=== PATIENT | male | born 1935 | race Caucasian/White ===

== ENCOUNTER 2016-11-12 12:17 | Inpatient (IN) | payer MEDICARE ==
[2016-11-12] MEDS ORDERED: NITROGLYCERIN OINT 1 INCH/GM PACKET TOPICAL STA (13:03)
[2016-11-12] MEDS ORDERED: ASPIRIN 81 MG CHEW PO STA (13:03)
--- NOTE | 2016-11-12 13:16 | ED ---
General Adult HPI - General Chief complaint: Chest Pain Stated complaint: SOB, abnormal EKG Time Seen by Provider: 11/12/16 12:20 Source: patient, RN notes reviewed Mode of arrival: ambulatory Limitations: no limitations - History of Present Illness Initial comments: This is an 81-year-old male who presents to the emergency department with multiple complaints. Patient states she's been having intermittent chest pain or shortness of breath over the last 3 months. Patient states anytime he exerts himself he feels more short of breath. Patient also complains that he has had no appetite lately knees lost over 30 pounds. Patient states also become extremely weak. Patient states prior to 3 months ago he was walking every day he was able to get up and play with hisgrand kids and lately he has no energy whatsoever. Patient denies any abdominal pain patient denies nausea vomiting diarrhea per patient denies back pain patient denies any dysuria hematuria urinary frequency. Patient denies any recent fever or chills. Patient complains of a cough with white sputum.patient denies any smoking history for himself however his is a heavy smoker. - Related Data Home Medications Medication Instructions Recorded Confirmed Aspirin [Adult Low Dose Aspirin EC] 810 mg PO DAILY 07/17/15 11/12/16 Atenolol 100 mg PO DAILY 07/17/15 11/12/16 Allergies Allergy/AdvReac Type Severity Reaction Status Date / Time No Known Allergies Allergy Verified 11/12/16 14:28 Review of Systems ROS Statement: Those systems with pertinent positive or pertinent negative responses have been documented in the HPI. ROS Other: All systems not noted in ROS Statement are negative. Past Medical History Past Medical History: Chest Pain / Angina, Hypertension History of Any Multi-Drug Resistant Organisms: None Reported Past Surgical History: Hernia Repair Additional Past Surgical History / Comment(s): HEMORROIDS Past Anesthesia/Blood Transfusion Reactions: No Reported Reaction Past Psychological History: No Psychological Hx Reported Smoking Status: Former smoker Past Alcohol Use History: None Reported Additional Past Alcohol Use History / Comment(s): SMOKED A PIPE FOR 6-7 YR. Past Drug Use History: None Reported General Exam - General Exam Comments Initial Comments: GENERAL: Patient is well-developed and well-nourished. Patient is nontoxic and well- hydrated and is in mild distress. ENT: Neck is soft and supple. No significant lymphadenopathy is noted. Oropharynx is clear. Moist mucous membranes. Neck has full range of motion without eliciting any pain. EYES: The sclera were anicteric and conjunctiva were pink and moist. Extraocular movements were intact and pupils were equal round and reactive to light. Eyelids were unremarkable. PULMONARY: diminished breath sounds in the bases. CARDIOVASCULAR: There is a regular rate and rhythm without any murmurs gallops or rubs. ABDOMEN: Soft and nontender with normal bowel sounds. No palpable organomegaly was noted. There is no palpable pulsatile mass. SKIN: Skin is clear with no lesions or rashes and otherwise unremarkable. NEUROLOGIC: Patient is alert and oriented x3. Cranial nerves II through XII are grossly intact. Motor and sensory are also intact. Normal speech, volume and content. Symmetrical smile. MUSCULOSKELETAL: Normal extremities with adequate strength and full range of motion. No lower extremity swelling or edema. No calf tenderness. LYMPHATICS: No significant lymphadenopathy is noted PSYCHIATRIC: Normal psychiatric evaluation. Normal interpersonal interactions appears functionally intact in deals appropriately with others. No signs of depression. No signs of anxiety. Limitations: no limitations Course Vital Signs 11/12/16 11/12/16 11/12/16 12:19 13:37 14:00 Temperature 97.1 F L 97.2 F L Pulse Rate 68 72 72 Respiratory 18 16 16 Rate Blood Pressure 113/67 117/65 133/66 O2 Sat by Pulse 99 99 98 Oximetry 11/12/16 11/12/16 11/12/16 15:00 16:00 16:45 Temperature 97.8 F 98.2 F Pulse Rate 72 66 66 Respiratory 16 16 22 Rate Blood Pressure 128/77 120/70 122/74 O2 Sat by Pulse 98 99 99 Oximetry Medical Decision Making - Medical Decision Making EKG shows normal sinus rhythm at 70 bpm ND interval is 188 QRSs 168 QT interval 484 QTC is 522 per patient's left bundle branch block. Patient does not know if that is new or old. We have no old EKG to compare to I started the patient because his troponin was elevated and he had a left bundle branch block which she has never heard of before. I started on high- dose heparin because he also had elevated d-dimer but I was unable to a CAT scan to rule out PE because of his elevated creatinine. CT of the chest abdomen pelvis showed no acute abnormality. IV contrast could not be because of the patient's creatinine level. I spoke with Dr. Crane he agreed to admit the patient admitted the patientconsult cardiology wrote admitting orders and continue the heparin and aspirin and Nitropaste on the floor. - Lab Data Result diagrams: 11/12/16 12:40 11/12/16 12:40 Lab Results 11/12/16 11/12/16 11/12/16 Range/Units 12:40 12:40 12:40 WBC 9.9 (3.8-10.6) k/uL RBC 3.06 L (4.30-5.90) m/uL Hgb 11.9 L (13.0-17.5) gm/dL Hct 35.3 L (39.0-53.0) % MCV 115.1 H (80.0-100.0) fL MCH 38.9 H (25.0-35.0) pg MCHC 33.8 (31.0-37.0) g/dL RDW 14.9 (11.5-15.5) % Plt Count 337 (150-450) k/uL Neutrophils % (Manual) 81.5 % Lymphocytes % (Manual) 10.5 % Monocytes % (Manual) 6.5 % Eosinophils % (Manual) 1.5 % Neutrophils # (Manual) 8.1 H (1.3-7.7) k/uL Lymphocytes # (Manual) 1.0 (1.0-4.8) k/uL Monocytes # (Manual) 0.6 (0-1.0) k/uL Eosinophils # (Manual) 0.1 (0-0.7) k/uL Nucleated RBCs 2 H (0-0) /100 WBC Polychromasia Present Poikilocytosis (manual Present Anisocytosis (manual) Present Macrocytosis Marked Target Cells Present PT (9.0-12.0) sec INR (<1.1) APTT (22.0-30.0) sec D-Dimer (<0.60) mg/L FEU Sodium 139 (137-145) mmol/L Potassium 5.1 (3.5-5.1) mmol/L Chloride 104 (98-107) mmol/L Carbon Dioxide 23 (22-30) mmol/L Anion Gap 12 mmol/L BUN 50 H (9-20) mg/dL Creatinine 1.51 H (0.66-1.25) mg/dL Est GFR (MDRD) Af Amer 54 (>60 ml/min/1.73 sqM) Est GFR (MDRD) Non-Af 44 (>60 ml/min/1.73 sqM) Glucose 102 H (74-99) mg/dL Calcium 9.6 (8.4-10.2) mg/dL Magnesium 2.2 (1.6-2.3) mg/dL Total Bilirubin 3.0 H (0.2-1.3) mg/dL AST 153 H (17-59) U/L ALT 179 H (21-72) U/L Alkaline Phosphatase 52 (38-126) U/L Total Creatine Kinase 382 H (55-170) U/L CK-MB (CK-2) 17.6 H* (0.0-2.4) ng/mL CK-MB (CK-2) Rel Index 4.6 Troponin I 0.819 H* (0.000-0.034) ng/mL NT-Pro-B Natriuret Pep pg/mL Total Protein 6.6 (6.3-8.2) g/dL Albumin 4.2 (3.5-5.0) g/dL 11/12/16 11/12/16 Range/Units 12:40 12:40 WBC (3.8-10.6) k/uL RBC (4.30-5.90) m/uL Hgb (13.0-17.5) gm/dL Hct (39.0-53.0) % MCV (80.0-100.0) fL MCH (25.0-35.0) pg MCHC (31.0-37.0) g/dL RDW (11.5-15.5) % Plt Count (150-450) k/uL Neutrophils % (Manual) % Lymphocytes % (Manual) % Monocytes % (Manual) % Eosinophils % (Manual) % Neutrophils # (Manual) (1.3-7.7) k/uL Lymphocytes # (Manual) (1.0-4.8) k/uL Monocytes # (Manual) (0-1.0) k/uL Eosinophils # (Manual) (0-0.7) k/uL Nucleated RBCs (0-0) /100 WBC Polychromasia Poikilocytosis (manual Anisocytosis (manual) Macrocytosis Target Cells PT 16.0 H (9.0-12.0) sec INR 1.7 (<1.1) APTT 24.9 (22.0-30.0) sec D-Dimer 1.08 H (<0.60) mg/L FEU Sodium (137-145) mmol/L Potassium (3.5-5.1) mmol/L Chloride (98-107) mmol/L Carbon Dioxide (22-30) mmol/L Anion Gap mmol/L BUN (9-20) mg/dL Creatinine (0.66-1.25) mg/dL Est GFR (MDRD) Af Amer (>60 ml/min/1.73 sqM) Est GFR (MDRD) Non-Af (>60 ml/min/1.73 sqM) Glucose (74-99) mg/dL Calcium (8.4-10.2) mg/dL Magnesium (1.6-2.3) mg/dL Total Bilirubin (0.2-1.3) mg/dL AST (17-59) U/L ALT (21-72) U/L Alkaline Phosphatase (38-126) U/L Total Creatine Kinase (55-170) U/L CK-MB (CK-2) (0.0-2.4) ng/mL CK-MB (CK-2) Rel Index Troponin I (0.000-0.034) ng/mL NT-Pro-B Natriuret Pep 15686 pg/mL Total Protein (6.3-8.2) g/dL Albumin (3.5-5.0) g/dL Critical Care Time Critical Care Time: Yes Total Critical Care Time: 35 Disposition Clinical Impression: Non-STEMI (non-ST elevated myocardial infarction), Renal insufficiency Disposition: ADMITTED IP TO THIS [facility] Referrals: Nonstaff,Physician [REFERRING] - 1-2 days Time of Disposition: 18:13
--- NOTE | 2016-11-12 13:25 | XR ---
EXAMINATION TYPE: XR chest 2V DATE OF EXAM: 11/12/2016 HISTORY: Chest Pain. REFERENCE: NONE. FINDINGS: Lungs are overinflated. The heart is enlarged. The bilateral effusions. There is calcified left hilar lymph nodes. IMPRESSION: 1. COPD. 2. CARDIOMEGALY. 3. EVIDENCE OF OLD GRANULOMATOUS DISEASE. 4. BILATERAL EFFUSIONS, SLIGHTLY LARGER ON THE LEFT THAN THE RIGHT.
[2016-11-12 13:42] LABS: INR 1.7 (<1.1); Partial Thromboplastin Time 24.9 sec (22.0-30.0)
[2016-11-12 13:43] LABS: CH 38.6; CHCM 33.7; HCT 35.3 % (39.0-53.0); HDW 2.78; HGB 11.9 gm/dL (13.0-17.5); MCH 38.9 pg (25.0-35.0); MCHC 33.8 g/dL (31.0-37.0); MCV 115.1 fL (80.0-100.0); Macrocytosis Marked; Mean Platelet Volume 8.1; RBC 3.06 m/uL (4.30-5.90); RDW 14.9 % (11.5-15.5); WBC (Perox) 9.66
[2016-11-12 13:45] LABS: Calcium 9.6 mg/dL (8.4-10.2); Magnesium 2.2 mg/dL (1.6-2.3); Potassium 5.1 mmol/L (3.5-5.1); Total Protein 6.6 g/dL (6.3-8.2)
[2016-11-12 14:22] LABS: Add Differential Manual Differential
[2016-11-12 14:25] LABS: Nucleated Red Blood Cells 2 /100 WBC (0-0); Total Cells Counted 200; WBC 9.9 k/uL (3.8-10.6)
[2016-11-12 14:26] LABS: Target Cells Present
[2016-11-12 14:27] LABS: Polychromasia Present
[2016-11-12 14:39] LABS: Creatine Kinase MB 17.6 ng/mL (0.0-2.4); Troponin I 0.819 ng/mL (0.000-0.034)
[2016-11-12] MEDS ORDERED: HEPARIN SODIUM,PORCINE/D5W PMX 25,000 UNIT in DEXTROSE/WATER 1 500ML.BAG IV SCH (16:39)
[2016-11-12] MEDS ORDERED: HEPARIN SODIUM,PORCINE 10,000 UNIT/ML 1 ML VIAL IV ONE (16:39)
--- NOTE | 2016-11-12 17:33 | CT ---
EXAMINATION TYPE: CT ChestAbdPelvis wo con DATE OF EXAM: 11/12/2016 INDICATION: Chest pain, shortness of breath and abnormal EKG. COMPARISON: NONE CT DLP: 391.70 mGycm CONTRAST: Performed without contrast TECHNIQUE: Axial images at 5 mm thick sections. Reconstructed images in the coronal plane. Delayed images through the kidneys. FINDINGS: CT CHEST: Portion of the thyroid visualized is normal. No suspicious infiltrates are evident. Bronchial thickening is present. Correlate for acute or chronic bronchitis. Small bilateral pleural e ffusions are present. Some adjacent compressive atelectasis is present. No enlarged mediastinal or hilar adenopathy is evident. The ascending aorta diameter at the level of the main pulmonary artery is 4.2 cm. The main pulmonary artery diameter at the bifurcation is 4.1 cm. Coronary artery calcification is present. CT ABDOMEN: Liver: Normal Spleen: Splenic granuloma are present. Pancreas: Normal Adrenal glands: The adrenal glands are normal. Gallbladder: Normal Kidneys: No masses are evident. No hydronephrosis is present. No cysts are present. Aorta: Vascular calcification is within the aorta. Inferior vena cava: Normal. CT PELVIS: Loops of bowel within the abdomen and pelvis are normal. Multiple diverticuli within the sigmoid colon. No acute sigmoid diverticulitis is evident. Appendix: Not identified Urinary bladder: Normal. Genitourinary structures: Prostate is slightly prominent Osseous structures: No suspicious lytic or sclerotic lesions. IMPRESSIONS: 1. Diverticulosis without acute diverticulitis. 2. Small bilateral pleural effusions. 3. Peribronchial thickening is present diffusely. Clinical consideration for chronic or acute bronchi tis is recommended.
[2016-11-12] MEDS ORDERED: NITROGLYCERIN SL TABS 0.4 MG TAB SUBLINGUAL PRN (18:14)
[2016-11-12 20:04] LABS: Creatine Kinase MB 14.4 ng/mL (0.0-2.4); Troponin I 0.835 ng/mL (0.000-0.034)
[2016-11-12 22:32] VITALS: BMI 21.4
[2016-11-12] MEDS: NITROGLYCERIN OINT 1 INCH/GM PACKET TOPICAL SCH (23:31)
[2016-11-13 02:00] LABS: Creatine Kinase MB 13.7 ng/mL (0.0-2.4)
[2016-11-13 02:01] LABS: Troponin I 0.827 ng/mL (0.000-0.034)
[2016-11-13] MEDS: NITROGLYCERIN OINT 1 INCH/GM PACKET TOPICAL SCH ×4 (06:05→22:58)
[2016-11-13] MEDS ORDERED: ATENOLOL 50 MG TAB PO SCH (09:00)
[2016-11-13 09:20] LABS: CH 38.4; CHCM 32.6; HCT 37.2 % (39.0-53.0); HDW 2.66; MCH 38.2 pg (25.0-35.0); MCHC 32.3 g/dL (31.0-37.0); MCV 118.3 fL (80.0-100.0); Macrocytosis Marked; RBC 3.14 m/uL (4.30-5.90); RDW 15.4 % (11.5-15.5); WBC (Perox) 9.83
[2016-11-13 09:21] LABS: Anion Gap 11 mmol/L; Blood Urea Nitrogen 50 mg/dL (9-20); Calcium 9.3 mg/dL (8.4-10.2); Carbon Dioxide 21 mmol/L (22-30); Chloride 106 mmol/L (98-107); Cholesterol 94 mg/dL (<200); Glucose 110 mg/dL (74-99); HDL Cholesterol 42 mg/dL (40-60); Non-African American GFR(MDRD) 51 (>60 ml/min/1.73 sqM); Potassium 4.4 mmol/L (3.5-5.1); Sodium 138 mmol/L (137-145); Triglycerides 50 mg/dL (<150)
[2016-11-13 10:08] LABS: Add Differential Manual Differential
--- NOTE | 2016-11-13 10:08 | CONS ---
DATE OF CONSULTATION: CHIEF COMPLAINT: Chest pain. HISTORY OF PRESENT ILLNESS: This is an 81-year-old gentleman with history of hypertension who presented to the hospital complaining of chest discomfort that he primarily describes as a discomfort involving the lower part of his chest cage and also the abdomen that seemed to radiate downwards. It is associated with some shortness of breath. Patient is actually becoming short of breath with very minimal activity. He lost about 30 pounds over the last several months in fact his symptoms has been going on for the last few months. Primary symptoms are in the form of weight loss and fatigue, tiredness and not feeling well. On this admission his troponins are mildly elevated, but there is no definite pattern to it. EKG shows left bundle branch block. A d-dimer is mildly elevated at one. INR is 1.7. His liver enzymes are elevated at 153 and 179 as is total bilirubin. His BNP is elevated at 29,000. Chest x-ray on him show showed cardiomegaly with bilateral pleural effusions. Past medical history is significant for hypertension. There is no history of diabetes, dyslipidemia. Medications include: 1. Atenolol 100 daily. 2. Aspirin 81 mg daily. FAMILY HISTORY: Negative for premature coronary artery disease. SOCIAL HISTORY: Negative for current smoking, ETOH abuse, or drug abuse. REVIEW OF SYSTEMS: CONSTITUTIONAL: Significant for weight loss, fatigue, not feeling well. CARDIAC: Significant for atypical chest pain. GI: Significant for weight loss and vague abdominal pain. ENDOCRINE: Negative. HEMATOLOGICAL: Negative. DERM: Negative. CONSTITUTIONAL: Negative. PSYCHOSOCIAL: Significant for mild disturbance in his memory. ONCOLOGICAL: Significant for weight loss. PSYCHOSOCIAL: Negative. Dermatology: Negative. CONSTITUTIONAL: As described above. RESPIRATORY: As described above. On exam he appears comfortable at rest. Vital signs are stable. There is no jugular venous distention. Carotid upstroke is normal. There is no bruit. Chest exam reveals good air entry bilaterally. Heart exam reveals first and second heart sounds. Systolic murmur at the apex. ABDOMEN: Soft. Exam of the extremities did not reveal any edema. Peripheral pulses are felt. Labs show that the liver enzymes are elevated. INR is 1.7. D-dimer is 1. Tropes are in the forbes zone at 0.8, 0.8 and 0.8. LDL cholesterol is 42. ASSESSMENT: 1. Troponin elevation of unclear clinical significance. 2. Coagulopathy with elevated liver enzymes will need to rule out metastatic liver disease. 3. Elevated d-dimer of unclear clinical significance but will get a V/Q scan done to rule out pulmonary embolism. 4. Prerenal azotemia. 5. Pleural effusion and shortness of breath, elevated BNP. 6. Acute onset congestive heart failure of unclear etiology. 7. Left bundle branch block. PLAN: I am going to hold the atenolol at this time. Stop the IV heparin as he has underlying coagulopathy, obtain a V/Q scan. He needs work-up for weight loss, elevated liver enzymes. I will obtain a 2-D echo to evaluate his LV function and I will put him on a small dose of Lasix. We will use Norvasc for hypertension control and cut the Tenormin dose to 25 mg daily.
[2016-11-13 10:11] LABS: Band Neutrophils % 4.5 %; Nucleated Red Blood Cells 2 /100 WBC (0-0); Total Cells Counted 200; WBC 9.9 k/uL (3.8-10.6)
[2016-11-13 10:12] LABS: Manual Review Performed
[2016-11-13] MEDS: ATENOLOL 25 MG TAB PO SCH (11:27)
[2016-11-13] MEDS: amLODIPine 10 MG TAB PO SCH (11:27)
[2016-11-13] MEDS: FUROSEMIDE 10 MG/ML 2 ML VIAL IV SCH (11:27)
--- NOTE | 2016-11-13 11:37 | NM ---
EXAMINATION TYPE: NM pul vent and perfuse DATE OF EXAM: 11/13/2016 COMPARISON: NONE HISTORY: No evidence of breath TECHNIQUE: Utilizing inhalation of 64.5 mCi Tc 99m DTPA aerosol and intravenous injection of 5.5 mCi of Tc 99m MAA, ventilation and perfusion images are acquired post injection in multiple projections. FINDINGS: Is patchy distribution of radiotracer on the ventilation portion of the study compatible with COPD. T here are small less scattered areas of perfusion relation abnormality. No perfusion mismatch is ident ified. IMPRESSION: Low probability for pulmonary embolism.
--- NOTE | 2016-11-13 12:44 | HP ---
DATE OF ADMISSION: Gil Pantoja is an 81-year-old male who is well known to me and follows actively with me in the outpatient setting. He comes in with chest pain located in the bottom part of his chest, but also somewhat in his back, slightly different than what he previously had. He was seen in September and at that time did not complain of any chest pain. He has a known history of chronic anemia and has previously declined colonoscopy and further work-up. He has had decreased appetite, and some weight loss. He denies any fever, chills, or rigors. When he was seen in the ED, he was found to have an elevated d-dimer as well as a troponin and subsequently was heparinized. He denies any fever or chills. His past medical history is positive for hypertension that is well controlled, history of anemia, history of hemorrhoids. SOCIAL HISTORY: Patient used to be an occasional smoker in the past, does not drink alcohol excessively. Family history is noncontributory. Medications prior to his admission were: 1. Atenolol. 2. Low-dose aspirin. On physical examination, his blood pressure is 123/79, respiratory rate of 16, pulse rate of 71, temperature 97.1, O2 sat on room air is 96%. HEENT reveals pupils that are equal. No jugular venous distention. Chest reveals decreased breath sounds in the bases with dullness to percussion. Cardiovascular system reveals an S1, S2. No S3, no S4, no murmurs. Abdomen is soft. There is no pedal edema. Labs reveal a white count of 9.9, hemoglobin of 12. PT, INR 1.7. D-dimer of 1.08, sodium 138, potassium 4.4, chloride 106, bicarb 21, BUN 50, creatinine of 133, BNP of 29,200. CT scan of the chest, abdomen and pelvis shows evidence of bilateral pleural effusions. No evidence of any abdominal or lung masses. V/Q scan is pending. EKG shows left bundle branch block. IMPRESSION: 1. Chest pain, possibly secondary to coronary artery disease versus other etiology. 2. Congestive heart failure and hypertensive heart disease as the cause of his congestive heart failure. 3. Coagulopathy, which may be due to passive congestion of the liver versus other etiology. 4. Chronic anemia. 5. Coagulopathy. At this point in time, from a medical standpoint, have cardiology further evaluate the patient. Rule in or rule out an DC based on serial CPKs and EKGs. Heparin has been stopped. Await V/Q scan. Increase his activity level. Check echocardiogram of the heart and decide on further evaluation. Keep him on GI and DVT prophylaxis.
[2016-11-13 13:33] LABS: Bilirubin, Delta 0.9 mg/dL (0.0-0.2); Total Bilirubin 2.8 mg/dL (0.2-1.3)
[2016-11-13 14:04] LABS: Hepatitis B Surface Ag Index 0.06
[2016-11-13 14:10] LABS: Hepatitis B Core IgM Index 0.03
[2016-11-13 14:21] LABS: Hepatitis C Virus IgG Ab Negative (Negative); Hepatitis C Virus IgG Index 0.01
[2016-11-13] MEDS: ASPIRIN 325 MG TAB PO SCH (16:28)
[2016-11-13] MEDS: HEPARIN SODIUM,PORCINE 5,000 UNIT/ML 1 ML VIAL SQ SCH (21:19)
[2016-11-13] MEDS: FAMOTIDINE 20 MG TAB PO SCH (21:19)
[2016-11-13 21:49] VITALS: RESP 18
[2016-11-14 04:59] VITALS: BP 117/63; PULSE 74; TEMP 96.9
[2016-11-14] MEDS: NITROGLYCERIN OINT 1 INCH/GM PACKET TOPICAL SCH (07:04)
--- NOTE | 2016-11-14 10:32 | ECHOF ---
Referral Reason:NSTEMI MEASUREMENTS -------- HEIGHT: 157.5 cm WEIGHT: 69.4 kg BP: 120/60 RVIDd: 2.3 cm (< 3.3) IVSd: 1.0 cm (0.6 - 1.1) LVIDd: 6.2 cm (3.9 - 5.3) LVPWd: 1.1 cm (0.6 - 1.1) IVSs: 1.2 cm LVIDs: 5.7 cm LVPWs: 1.3 cm LA Diam: 4.6 cm (2.7 - 3.8) LAESV Index (A-L): 56.13 ml/m Ao Diam: 3.6 cm (2.0 - 3.7) AV Cusp: 2.2 cm (1.5 - 2.6) LA Diam: 4.5 cm (2.7 - 3.8) MV EXCURSION: 15.965 mm (> 18.000) MV EF SLOPE: 66 mm/s (70 - 150) EPSS: 1.6 cm MV E Anjel: 1.11 m/s MV DecT: 113 ms MV A Anjel: 0.69 m/s MV E/A Ratio: 1.61 AR PHT: 356 ms RAP: 15.00 mmHg RVSP: 70.98 mmHg FINDINGS -------- Sinus rhythm. This was a technically good study. The left ventricle is moderately dilated. Left ventricular wall thickness is normal. There is severe global hypokinesis of LV . Overall left ventricular systolic function is severely impaired with, an EF < 20%. The right ventricle is normal in size. LA is severely dilated >40 ml/m2 The right atrial size is normal. There is mild aortic valve sclerosis. There is mild aortic regurgitation. Mild mitral annular calcification present. Moderate mitral regurgitation is present. Mild tricuspid regurgitation present. There is moderate to severe pulmonary hypertension. The right ventricular systolic pressure, as measured by Doppler, is 70.98mmHg. Trace/mild (physiologic) pulmonic regurgitation. The aortic root size is normal. There is no pericardial effusion. Small Pleural Effusion. CONCLUSIONS -------- 1. The left ventricle is moderately dilated. 2. Mild tricuspid regurgitation present. 3. There is moderate to severe pulmonary hypertension. 4. The right ventricular systolic pressure, as measured by Doppler, is 70.98mmHg. 5. Trace/mild (physiologic) pulmonic regurgitation. 6. The aortic root size is normal. 7. There is no pericardial effusion. 8. Small Pleural Effusion. 9. Left ventricular wall thickness is normal. 10. There is severe global hypokinesis of LV . 11. Overall left ventricular systolic function is severely impaired with, an EF < 20%. 12. LA is severely dilated >40 ml/m2 13. There is mild aortic valve sclerosis. 14. There is mild aortic regurgitation. 15. Mild mitral annular calcification present. 16. Moderate mitral regurgitation is present. [employer] ARC: Coty Berumen RDCS
[2016-11-14] MEDS ORDERED: ISOSORBIDE MONONITRATE ER 30 MG TAB.ER.24H PO SCH (11:00)
--- NOTE | 2016-11-14 11:26 | PN ---
81-year-old gentleman that was admitted to hospital with fatigue, shortness of breath, not feeling well and was found to be in complex and multiple medical problems including acute onset of systolic heart failure, elevated troponins probably secondary to small non-ST segment elevation myocardial infarction, elevated d-dimer of unclear clinical significance and elevated liver enzymes which could be due to either congestive hepatomegaly or metastatic liver disease. This morning, patient appears more confused and there is a daughter and son in law with whom I had a long conversation and spoke to them about his condition both short long-term prognosis. The patient is not a candidate for invasive angiography. He has significant liver failure including coagulopathy, elevated liver enzymes. His long-term prognosis is guarded. I am going to treat him with medications including aspirin. Aspirin 81 mg daily, Tenormin 25 mg daily, Lasix 20 mg daily, Imdur 30 mg daily. I am not starting him on any statins at the moment given the elevated liver enzymes. Patient wishes to go home and probably is not a bad idea to let him go home. On exam, afebrile. Vital signs are stable. There is no jugular venous distention. Chest exam reveals good air entry bilaterally. Heart exam reveals first and second heart sounds. No gallop. No murmur. ABDOMEN: Soft. Exam of extremities did not reveal edema. Peripheral pulses are felt. An echocardiogram shows severe LV systolic dysfunction and severe pulmonary hypertension with moderate mitral regurgitation. ASSESSMENT: 1. Cardiomyopathy, acute systolic heart failure. 2. Small non-ST segment elevation myocardial infarction. 3. Dementia. PLAN: We will continue with medical therapy. I reviewed V/Q scan which shows low probability.
[2016-11-14] MEDS: ASPIRIN 325 MG TAB PO SCH (11:39)
[2016-11-14] MEDS: amLODIPine 10 MG TAB PO SCH (11:39)
[2016-11-14] MEDS: FAMOTIDINE 20 MG TAB PO SCH (11:39)
[2016-11-14] MEDS: FUROSEMIDE 10 MG/ML 2 ML VIAL IV SCH (11:39)
[2016-11-14] MEDS: HEPARIN SODIUM,PORCINE 5,000 UNIT/ML 1 ML VIAL SQ SCH (11:39)
[2016-11-14] MEDS ORDERED: ASPIRIN 81 MG CHEW PO STA (11:41)
[2016-11-14] MEDS: ATENOLOL 25 MG TAB PO SCH (11:47)
[2016-11-14] MEDS ORDERED: FUROSEMIDE 40 MG TAB PO SCH (12:00)
[2016-11-15] MEDS ORDERED: ASPIRIN 81 MG CHEW PO SCH (09:00)
--- NOTE | 2016-11-15 09:09 | DS ---
DATE OF ADMISSION: 11/12/2016 DATE OF DISCHARGE: 11/14/2016 Gil Pantoja is an 81-year-old male who comes in with a history of chest pain. It was located retrosternally. He also had been having some weight loss and decreased appetite and was subsequently admitted for further evaluation and management. Past medical history is positive for hypertension, history of hemorrhoids, history of anemia. The patient had previously declined colonoscopy. SOCIAL HISTORY: Patient used to be an occasional smoker, does not drink alcohol. Family history is noncontributory. Medications prior to admission were atenolol and low-dose aspirin. On physical examination, blood pressure is 123/79, respiratory rate is 16, pulse rate is 71, temperature 97.1, O2 sats on room air is 96%. HEENT was unremarkable. Chest revealed decreased breath sounds at the bases, dullness to percussion. Cardiovascular system revealed an S1, S2, short systolic murmur. Abdomen was soft. There was no pedal edema. Initial labs showed borderline elevated troponin and d-dimer. V/Q scan was negative. Patient continued to have slight elevation in his d-dimer. EKG showed left bundle branch block which is possibly new. Lab work was significant for elevated liver enzymes but also coagulopathy. Patient was seen by Cardiology. Echocardiogram was done, which showed evidence of global hypokinesis with the EF of less than 20% with evidence of enlarged left ventricle and left atrium but also pulmonary hypertension most likely secondary to left heart failure. The patient otherwise seems to be doing fair. CT scan of the chest, abdomen and pelvis showed no evidence of any masses but there was bilateral pleural effusions. Patient otherwise seems to be doing fair today and, per Cardiology will be treated medically. CT scan evidence of coronary calcification. Patient will be discharged home today. On physical examination, his blood pressure 117/62, respiratory rate of 18, pulse of 74, temperature 96.9. HEENT is unremarkable. Chest reveals decreased breath sounds at the bases. Cardiovascular system reveals S1 and S2. Abdomen is soft. There is no pedal edema. Patient will be discharged home today with discharge diagnoses: 1. Acute myocardial infarction. 2. Non-ST myocardial infarction. 3. Abnormal EKG with left bundle branch block. 4. Congestive cardiomyopathy with left ventricular failure, systolic and global hypokinesis. 5. Pulmonary hypertension secondary to left ventricular failure. 6. Coagulopathy, hepatic insufficiency. Condition is stable. Activity is as tolerated. Diet is cardiac. Discharge medications are: 1. Lasix 40 mg a day. 2. Imdur 30 mg a day. 3. Atenolol 25 mg a day. 4. Aspirin 81 mg a day. 5. Nitroglycerin 0.4 mg sublingual p.r.n. Patient will follow up with Dr. Neftaly Richards in 1 week's time,, Dr. Sia Crane in about 1 to 2 weeks' time. Patient's condition was discussed with his family and him.
== END 2016-11-14 12:01 | disposition home or self-care (01) | DRG 280 ==
LOC: EC 12:17 → 6SEL 18:16
PROVIDERS: ADMIT Internal Medicine Pulmonary Disease; ATTEND Internal Medicine Pulmonary Disease
DX: I21.4 Non-ST elevation (NSTEMI) myocardial infarction (principal); I50.21 Acute systolic (congestive) heart failure; D68.4 Acquired coagulation factor deficiency; I42.0 Dilated cardiomyopathy; F03.90 Unspecified dementia, unspecified severity, without behavioral disturbance, psychotic disturbance, mood disturbance, and anxiety; I27.2 Other secondary pulmonary hypertension; I11.0 Hypertensive heart disease with heart failure; I44.7 Left bundle-branch block, unspecified; D64.9 Anemia, unspecified; I34.0 Nonrheumatic mitral (valve) insufficiency; K72.90 Hepatic failure, unspecified without coma; Z87.891 Personal history of nicotine dependence; Z79.899 Other long term (current) drug therapy; N28.9 Disorder of kidney and ureter, unspecified
CPT/HCPCS: 36415; 71020; 71250; 74176; 78582; 80048; 80053; 80061; 80074; 82248; 82550; 82553; 83516; 83735; 83880; 84484; 85025; 85379; 85610; 85730; 93005; 93306; 96365; 96366; 96376; 99291

== ENCOUNTER 2018-08-22 02:11 | Inpatient (IN) | payer MEDICARE ==
[2018-08-22] MEDS ORDERED: SODIUM CHLORIDE 0.9% 1,000 ML IV STA (02:14)
[2018-08-22] MEDS ORDERED: TRANEXAMIC ACID 1,000 MG in SODIUM CHLORIDE 0.9% 100 ML IVPB ONE (02:35)
--- NOTE | 2018-08-22 03:03 | ED ---
General Adult HPI - General Chief complaint: GI Bleed Stated complaint: GI Bleed Time Seen by Provider: 08/22/18 02:14 Source: patient, family, EMS Mode of arrival: EMS Limitations: no limitations - History of Present Illness Initial comments: Gil is a pleasantly demented 82-year-old gentleman who presents to the emergency department today via EMS for evaluation of generalized fatigue, vomiting blood, bloody stools, bloody nose. Patient is able to state his name and date of but is very confused about events leading up to hospitalization. He does answer questions yes or no but not always appropriately. Patient's daughter at bedside is an RN. She states the patient has been declining over the past 2 months. She states that over the past 2-3 days they've noticed that the patient seems to been having bloody noses but he had not complained to them about him. His did report that he's excused himself to the restroom for 5-6 hours at a time for the past couple days and she is concerned that he has been having bloody noses that persist for extended period of time. Daughter reports the patient was feeling well this evening, she had dinner with him and he was talkative however her mother called her later in the night reporting the patient did decline significantly. Upon her arrival to the emergency department she did note that the patient looked pale and seemed more lethargic than usual. She states that in the past she's become agitated with coming to the hospital and today he seems resigned. The patient's daughter and her both report that they have discussed with the patient his end-of-life wishes in the past, patient his repeatedly stated that he is ready to go when got is ready to take him. He states that he wouldn't want any worse. At this time family would like to make the patient DNAR but would consent to blood transfusion. - Related Data Previous Rx's Medication Instructions Recorded Aspirin [Adult Low Dose Aspirin EC] 81 mg PO DAILY #30 tablet. 11/14/16 Atenolol 25 mg PO DAILY #30 tablet 11/14/16 Furosemide [Lasix] 40 mg PO DAILY #30 tablet 11/14/16 Isosorbide Mononitrate ER [Imdur] 30 mg PO DAILY #30 tab 11/14/16 Nitroglycerin Sl Tabs [Nitrostat] 0.4 mg SUBLINGUAL Q5M PRN #100 tab 11/14/16 Allergies Allergy/AdvReac Type Severity Reaction Status Date / Time No Known Allergies Allergy Verified 11/12/16 14:28 Review of Systems ROS Statement: Those systems with pertinent positive or pertinent negative responses have been documented in the HPI. ROS Other: All systems not noted in ROS Statement are negative. Limitations: ROS unobtainable due to patients medical condition Past Medical History Past Medical History: Chest Pain / Angina, Hypertension History of Any Multi-Drug Resistant Organisms: None Reported Past Surgical History: Hernia Repair Additional Past Surgical History / Comment(s): HEMORROIDS Past Anesthesia/Blood Transfusion Reactions: No Reported Reaction Past Psychological History: No Psychological Hx Reported Smoking Status: Former smoker Past Alcohol Use History: None Reported Past Drug Use History: None Reported - Past Family History Mother Family Medical History: No Reported History Father Family Medical History: Myocardial Infarction ([place]) General Exam - General Exam Comments Initial Comments: GENERAL: Unwell appearing, pale, elderly, dried blood in nasopharynx HENT: Normocephalic, Atraumatic. Dried blood in the bilateral nares and oropharynx EYES: Conjunctival pallor PULMONARY: Unlabored respirations. Good breath sounds bilaterally. No audible rales rhonchi or wheezing was noted. CARDIOVASCULAR: Irregular ABDOMEN: Soft and nontender with normal bowel sounds. SKIN: Pale nonhealing wound of the left ankle NEURO: alert and oriented to self MUSCULOSKELETAL: generalized muscle atrophy LYMPHATICS: No significant lymphadenopathy is noted PSYCHIATRIC: Confused, resigned ns: no limitations Limitations: no limitations Course Vital Signs 08/22/18 08/22/18 08/22/18 02:14 03:00 03:08 Temperature 92.0 F L 94.8 F L 95 F L Pulse Rate 88 79 44 L Respiratory 18 16 16 Rate Blood Pressure 82/55 71/31 61/37 O2 Sat by Pulse 93 L 97 Oximetry 08/22/18 08/22/18 08/22/18 03:09 03:19 05:07 Temperature 95 F L 95 F L Pulse Rate 36 L 30 L 36 L Respiratory 16 16 12 Rate Blood Pressure 73/41 63/37 79/49 O2 Sat by Pulse 99 Oximetry EKG Findings - EKG Comments: EKG Findings:: EKG obtained at 2:25 AM rate is 78 rhythm appears to be sinus with significant arrhythmia and a left bundle branch block. Medical Decision Making - Medical Decision Making The patient was seen and evaluated patient is noted to be hypotensive, having significant arrhythmia's, appears very pale and is hypothermic IV access was obtained that there was difficulty in obtaining blood, I contacted the blood bank and requested a release of 2 units packed red blood cells I discussed the patient's condition with his daughter and son-in-law at bedside. They have discussed the patient's wishes with him in the past as well as with his who does not suffer from dementia. Family has a consensus that the patient would want to be DNAR. Patient does consent to blood transfusion he does not have any oriental orthodox or ethical believes against receiving blood. Labs were obtained 2u PRBC ordered ordered and transfused Patient with episode of bradycardia, HR down to 26, Atropine ordered, HR improved to high 30s patient becoming agitated, remains hypotensive, family would like to make him comfort care Comfort care orders placed Patient care discussed with patient's PCP Dr Crane who requests admission to Dr Deal team Patient care discussed with Dr. Fisher who is aware patient is hypodynamically unstable, hypotensive, bradycardic with episodes of V-tach with rates in 150s - patient appears to be actively dying - Lab Data Result diagrams: 08/22/18 02:51 08/22/18 02:51 Lab Results 08/22/18 08/22/18 08/22/18 Range/Units 02:49 02:50 02:51 WBC (3.8-10.6) k/uL RBC (4.30-5.90) m/uL Hgb (13.0-17.5) gm/dL Hct (39.0-53.0) % MCV (80.0-100.0) fL MCH (25.0-35.0) pg MCHC (31.0-37.0) g/dL RDW (11.5-15.5) % Plt Count (150-450) k/uL Neutrophils % (Manual) % Band Neutrophils % % Lymphocytes % (Manual) % Monocytes % (Manual) % Eosinophils % (Manual) % Metamyelocytes % % Myelocytes % % Neutrophils # (Manual) (1.3-7.7) k/uL Lymphocytes # (Manual) (1.0-4.8) k/uL Monocytes # (Manual) (0-1.0) k/uL Eosinophils # (Manual) (0-0.7) k/uL Metamyelocytes # (Man) (0) k/uL Myelocytes # (Manual) (0) k/uL Nucleated RBCs (0-0) /100 WBC Manual Slide Review Large Platelets Polychromasia Hypochromasia Poikilocytosis (manual Anisocytosis Macrocytosis Target Cells Ovalocytes PT (9.0-12.0) sec INR (<1.2) APTT (22.0-30.0) sec Sodium (137-145) mmol/L Potassium (3.5-5.1) mmol/L Chloride (98-107) mmol/L Carbon Dioxide (22-30) mmol/L Anion Gap mmol/L BUN (9-20) mg/dL Creatinine (0.66-1.25) mg/dL Est GFR (CKD-EPI)AfAm (>60 ml/min/1.73 sqM) Est GFR (CKD-EPI)NonAf (>60 ml/min/1.73 sqM) Glucose (74-99) mg/dL Calcium (8.4-10.2) mg/dL Total Bilirubin (0.2-1.3) mg/dL AST (17-59) U/L ALT (21-72) U/L Alkaline Phosphatase (38-126) U/L Troponin I (0.000-0.034) ng/mL Total Protein (6.3-8.2) g/dL Albumin (3.5-5.0) g/dL Blood Type B Positive Blood Type Confirm B Positive Blood Type Recheck CABO Indicated Antibody Screen NEGATIVE Crossmatch See Detail Spec Expiration Date 08/25/2018 - 235008/22/18 08/22/18 08/22/18 Range/Units 02:51 02:51 02:51 WBC 10.8 H (3.8-10.6) k/uL RBC 2.00 L (4.30-5.90) m/uL Hgb 7.6 L (13.0-17.5) gm/dL Hct 24.0 L (39.0-53.0) % MCV 120.3 H (80.0-100.0) fL MCH 38.1 H (25.0-35.0) pg MCHC 31.7 (31.0-37.0) g/dL RDW 16.9 H (11.5-15.5) % Plt Count 272 (150-450) k/uL Neutrophils % (Manual) 77 % Band Neutrophils % 10 % Lymphocytes % (Manual) 9 % Monocytes % (Manual) 2 % Eosinophils % (Manual) 1 % Metamyelocytes % 1 % Myelocytes % 1 % Neutrophils # (Manual) 9.30 H (1.3-7.7) k/uL Lymphocytes # (Manual) 0.97 L (1.0-4.8) k/uL Monocytes # (Manual) 0.22 (0-1.0) k/uL Eosinophils # (Manual) 0.11 (0-0.7) k/uL Metamyelocytes # (Man) 0.11 H (0) k/uL Myelocytes # (Manual) 0.11 H (0) k/uL Nucleated RBCs 4 H (0-0) /100 WBC Manual Slide Review Performed Large Platelets Present Polychromasia Present Hypochromasia Moderate Poikilocytosis (manual Present Anisocytosis Slight Macrocytosis Marked Target Cells Present Ovalocytes Present PT 12.6 H (9.0-12.0) sec INR 1.2 H (<1.2) APTT 20.1 L (22.0-30.0) sec Sodium 142 (137-145) mmol/L Potassium 4.2 (3.5-5.1) mmol/L Chloride 103 (98-107) mmol/L Carbon Dioxide 17 L (22-30) mmol/L Anion Gap 22 mmol/L BUN 78 H (9-20) mg/dL Creatinine 3.24 H (0.66-1.25) mg/dL Est GFR (CKD-EPI)AfAm 19 (>60 ml/min/1.73 sqM) Est GFR (CKD-EPI)NonAf 17 (>60 ml/min/1.73 sqM) Glucose 159 H (74-99) mg/dL Calcium 9.2 (8.4-10.2) mg/dL Total Bilirubin 1.5 H (0.2-1.3) mg/dL AST 135 H (17-59) U/L ALT 104 H (21-72) U/L Alkaline Phosphatase 87 (38-126) U/L Troponin I (0.000-0.034) ng/mL Total Protein 6.1 L (6.3-8.2) g/dL Albumin 3.7 (3.5-5.0) g/dL Blood Type Blood Type Confirm Blood Type Recheck Antibody Screen Crossmatch Spec Expiration Date 08/22/18 Range/Units 02:51 WBC (3.8-10.6) k/uL RBC (4.30-5.90) m/uL Hgb (13.0-17.5) gm/dL Hct (39.0-53.0) % MCV (80.0-100.0) fL MCH (25.0-35.0) pg MCHC (31.0-37.0) g/dL RDW (11.5-15.5) % Plt Count (150-450) k/uL Neutrophils % (Manual) % Band Neutrophils % % Lymphocytes % (Manual) % Monocytes % (Manual) % Eosinophils % (Manual) % Metamyelocytes % % Myelocytes % % Neutrophils # (Manual) (1.3-7.7) k/uL Lymphocytes # (Manual) (1.0-4.8) k/uL Monocytes # (Manual) (0-1.0) k/uL Eosinophils # (Manual) (0-0.7) k/uL Metamyelocytes # (Man) (0) k/uL Myelocytes # (Manual) (0) k/uL Nucleated RBCs (0-0) /100 WBC Manual Slide Review Large Platelets Polychromasia Hypochromasia Poikilocytosis (manual Anisocytosis Macrocytosis Target Cells Ovalocytes PT (9.0-12.0) sec INR (<1.2) APTT (22.0-30.0) sec Sodium (137-145) mmol/L Potassium (3.5-5.1) mmol/L Chloride (98-107) mmol/L Carbon Dioxide (22-30) mmol/L Anion Gap mmol/L BUN (9-20) mg/dL Creatinine (0.66-1.25) mg/dL Est GFR (CKD-EPI)AfAm (>60 ml/min/1.73 sqM) Est GFR (CKD-EPI)NonAf (>60 ml/min/1.73 sqM) Glucose (74-99) mg/dL Calcium (8.4-10.2) mg/dL Total Bilirubin (0.2-1.3) mg/dL AST (17-59) U/L ALT (21-72) U/L Alkaline Phosphatase (38-126) U/L Troponin I 0.309 H* (0.000-0.034) ng/mL Total Protein (6.3-8.2) g/dL Albumin (3.5-5.0) g/dL Blood Type Blood Type Confirm Blood Type Recheck Antibody Screen Crossmatch Spec Expiration Date Disposition Clinical Impression: Nosebleed, Acute anemia, NSTEMI (non-ST elevated myocardial infarction), Bradycardia, Hypotension, Hypothermia, Dementia, LADY (acute kidney injury) Disposition: ADMITTED IP TO THIS HOSP Condition: Critical Is patient prescribed a controlled substance at d/c from ED?: No Referrals: Johnathon Crane MD [Primary Care Provider] - 1-2 days
[2018-08-22 03:10] VITALS: TEMP 95
[2018-08-22 03:12] LABS: Anisocytosis Slight; HGB 7.6 gm/dL (13.0-17.5); Hypochromasia Moderate; MCH 38.1 pg (25.0-35.0); MCHC 31.7 g/dL (31.0-37.0); MCV 120.3 fL (80.0-100.0); Macrocytosis Marked; Mean Platelet Volume 7.8; Platelet Count 272 k/uL (150-450); RDW 16.9 % (11.5-15.5)
[2018-08-22] MEDS ORDERED: ATROPINE SULFATE 0.4 MG/ML 20 ML VIAL IV STA (03:17)
[2018-08-22] MEDS ORDERED: ATROPINE SULFATE 0.1 MG/ML 10ML SYRINGE IV STA (03:17)
[2018-08-22 03:19] LABS: Albumin 3.7 g/dL (3.5-5.0); Calcium 9.2 mg/dL (8.4-10.2); Potassium 4.2 mmol/L (3.5-5.1); Total Bilirubin 1.5 mg/dL (0.2-1.3); Total Protein 6.1 g/dL (6.3-8.2)
[2018-08-22 03:24] LABS: INR 1.2 (<1.2); Prothrombin Time 12.6 sec (9.0-12.0)
[2018-08-22 03:36] LABS: Partial Thromboplastin Time 20.1 sec (22.0-30.0)
[2018-08-22] MEDS ORDERED: ONDANSETRON 4 MG/2 ML VIAL IVP PRN (03:45)
[2018-08-22] MEDS ORDERED: MORPHINE SULFATE 2 MG/ML SYRINGE IV PRN (03:45)
[2018-08-22] MEDS ORDERED: GLYCOPYRROLATE 0.2 MG/ML 2 ML VIAL IVP PRN (03:45)
[2018-08-22] MEDS: LORazepam 2 MG/ML INJ IV PRN ×4 (03:52→17:12)
[2018-08-22 04:35] LABS: Band Neutrophils % 10 %; Eosinophils # (M) 0.11 k/uL (0-0.7); Lymphocytes # (M) 0.97 k/uL (1.0-4.8); Metamyelocytes # (M) 0.11 k/uL (0); Metamyelocytes % 1 %; Monocytes # (M) 0.22 k/uL (0-1.0); Myelocytes # (M) 0.11 k/uL (0); Myelocytes % 1 %; Neutrophils % (M) 77 %; Nucleated Red Blood Cells 4 /100 WBC (0-0); Target Cells Present; Total Cells Counted 200; WBC 10.8 k/uL (3.8-10.6)
[2018-08-22 04:37] LABS: Large Platelets Present
[2018-08-22 04:38] LABS: Polychromasia Present
[2018-08-22 04:39] LABS: Ovalocytes Present
[2018-08-22 04:40] LABS: Poikilocytosis (M) Present
[2018-08-22 06:27] VITALS: BP 82/58; PULSE 99
--- NOTE | 2018-08-22 09:19 | CONS ---
CONSULTATION REASON FOR CONSULTATION: Gil Pantoaj is an 82-year-old patient of mine in the outpatient setting, who came into the ER when his family found him weak. He had a recent fall and subsequently had been vomiting blood. He had some bloody stools and a bloody nose. He came into the ER and was hypotensive. When he was seen in the ER, he subsequently was admitted for further evaluation. He did receive 2 units of packed cells. He was bradycardic. Subsequently, the family wanted him to be on comfort care. He was admitted to the hospital. PAST MEDICAL HISTORY: His past medical history is positive for hypertension, history of dementia, history of previous acute renal failure. SOCIAL HISTORY: Patient is a nonsmoker. Does not drink alcohol. 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 FAMILY HISTORY: Noncontributory. MEDICATIONS: Medications prior to admission were nitroglycerin, Imdur, Lasix, atenolol, and aspirin. REVIEW OF SYSTEMS: Review of systems is noncontributory. PHYSICAL EXAMINATION: On physical examination, patient is unresponsive. Does not follow any commands. His heart rate is 36, temperature 95, respiratory rate of 12, blood pressure of 79/49, O2 saturation on 2 L by nasal cannula is 99%. HEENT reveals pupils are equal. Chest reveals decreased breath sounds. Cardiovascular system reveals an S1, S2. Abdomen is soft. There is no edema. The patient is cold and clammy. White count is 10.8, hemoglobin of 7.6. Troponin 0.309. BUN 78, creatinine of 3.24. IMPRESSION AT THIS TIME: 1. Acute gastrointestinal bleed. 2. Epistaxis. 3. Acute myocardial infarction. 4. Bradycardia. 5. Metabolic encephalopathy. 6. Acute renal failure. 7. Dementia. At this point in time, comfort oriented care would be appropriate. I did discuss this with the patient's daughter. They are considering hospice at this time. Continue Ativan and morphine as needed. Depending on what arrangements we can make, he shall be a candidate for hospice. I would like to thank you for allowing me to participate in the care of my patient. MMODL / IJN: [id number] /
[2018-08-22 10:34] VITALS: BMI 17.4
--- NOTE | 2018-08-22 14:38 | P.HPIM ---
History of Present Illness H&P Date: 08/22/18 Chief Complaint: Epistaxis This is an 82-year-old male patient of Dr. 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 Patient's daughter is at the bedside and gives history that at 9:30 yesterday he started having a bloody nose and then was found to be slumped in the chair and EMS was called to bring him into the hospital. 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 Patient was very pale and lethargic upon arrival to the emergency center. His initial temperature was 92, heart rate in the 30s, blood pressure down to 63/37. EKG was a sinus with a left bundle thaddeus block. IV access was obtained and patient was given 2 units of packed RBCs for hemoglobin of 7.6 with active bleeding. Family made the patient DO NOT RESUSCITATE. Patient's heart rate dropped down to 26 and atropine was given. His heart rate was maintained mostly in the 30s. Family voiced at that time that they wanted to make him comfort care only. Patient did have episodes of V. tach with rates up to 150. Patient had elevated troponin as well as elevated renal function. He has been placed on the MedSurg floor and hospice referral placed. Review of Systems ROS unobtainable: due to mental status Past Medical History Past Medical History: Chest Pain / Angina, Dementia, Hypertension History of Any Multi-Drug Resistant Organisms: None Reported Past Surgical History: Hernia Repair Additional Past Surgical History / Comment(s): HEMORROIDS Past Anesthesia/Blood Transfusion Reactions: No Reported Reaction Past Psychological History: No Psychological Hx Reported Smoking Status: Former smoker Past Alcohol Use History: None Reported Additional Past Alcohol Use History / Comment(s): Patient smoked a pipe many years ago. No alcohol use or abuse. Past Drug Use History: None Reported - Past Family History Mother Family Medical History: No Reported History Additional Family Medical History / Comment(s): Mother at age 86 from sepsis with history of colostomy. Father Family Medical History: Myocardial Infarction ([place]) Additional Family Medical History / Comment(s): Father in his 70s from a CVA. Brother(s) Additional Family Medical History / Comment(s): Patient had 1 brother that in his 60s from cirrhosis of liver from alcohol abuse. Patient does not have any sisters. Patient has 2 daughters and one has history of rheumatoid arthritis. Medications and Allergies Home Medications Medication Instructions Recorded Confirmed Type Aspirin [Adult Low Dose Aspirin EC] 81 mg PO DAILY #30 tablet. 11/14/16 08/22/18 Rx Atenolol 25 mg PO DAILY #30 tablet 11/14/16 08/22/18 Rx Furosemide [Lasix] 40 mg PO DAILY #30 tablet 11/14/16 08/22/18 Rx Isosorbide Mononitrate ER [Imdur] 30 mg PO DAILY #30 tab 11/14/16 08/22/18 Rx Nitroglycerin Sl Tabs [Nitrostat] 0.4 mg SUBLINGUAL Q5M PRN #100 tab 11/14/16 08/22/18 Rx Allergies Allergy/AdvReac Type Severity Reaction Status Date / Time No Known Allergies Allergy Verified 08/22/18 07:46 Physical Exam Vitals: Vital Signs Temp Pulse Pulse Resp BP BP Pulse Ox 08/22/18 06:26 99 13 82/58 100 08/22/18 05:07 36 L 12 79/49 99 08/22/18 03:19 95 F L 30 L 16 63/37 08/22/18 03:09 95 F L 36 L 16 73/41 08/22/18 03:08 95 F L 44 L 16 61/37 08/22/18 03:00 94.8 F L 79 16 71/31 97 08/22/18 02:14 92.0 F L 88 18 82/55 93 L Intake and Output 08/21/18 08/22/18 08/22/18 22:59 06:59 14:59 Intake Total 310 Balance 310 Intake: Blood Product 310 Rc As-1 Unit 0 [id number] Rc As-1 Unit 310 [id number] Other: Weight 56.699 kg Gen: This is a thin 82-year-old male. Patient is responsive to light pain. He appears to be comfortable. HEENT: Head is atraumatic, normocephalic. Pupils equal, round. Sclerae is anicteric. NECK: Supple. No JVD. No lymphadenopathy. No thyromegaly. LUNGS: Clear to auscultation. No wheezes or rhonchi. No intercostal retra ctions. Irregular respirations, shallow. HEART: Regular rate and rhythm. No murmur. ABDOMEN: Soft. Bowel sounds are present. No masses. No tenderness. EXTREMITIES: No pedal edema. No calf tenderness. NEUROLOGICAL: Patient is not awake, not alert. Results CBC & Chem 7: 08/22/18 02:51 08/22/18 02:51 Labs: Abnormal Lab Results - Last 24 Hours (Table) 08/22/18 08/22/18 08/22/18 Range/Units 02:49 02:51 02:51 WBC 10.8 H (3.8-10.6) k/uL RBC 2.00 L (4.30-5.90) m/uL Hgb 7.6 L (13.0-17.5) gm/dL Hct 24.0 L (39.0-53.0) % MCV 120.3 H (80.0-100.0) fL MCH 38.1 H (25.0-35.0) pg RDW 16.9 H (11.5-15.5) % Neutrophils # (Manual) 9.30 H (1.3-7.7) k/uL Lymphocytes # (Manual) 0.97 L (1.0-4.8) k/uL Metamyelocytes # (Man) 0.11 H (0) k/uL Myelocytes # (Manual) 0.11 H (0) k/uL Nucleated RBCs 4 H (0-0) /100 WBC PT (9.0-12.0) sec INR (<1.2) APTT (22.0-30.0) sec Carbon Dioxide 17 L (22-30) mmol/L BUN 78 H (9-20) mg/dL Creatinine 3.24 H (0.66-1.25) mg/dL Glucose 159 H (74-99) mg/dL Total Bilirubin 1.5 H (0.2-1.3) mg/dL AST 135 H (17-59) U/L ALT 104 H (21-72) U/L Troponin I (0.000-0.034) ng/mL Total Protein 6.1 L (6.3-8.2) g/dL Crossmatch See Detail 03/12/19 03/12/19 Range/Units 02:51 02:51 WBC (3.8-10.6) k/uL RBC (4.30-5.90) m/uL Hgb (13.0-17.5) gm/dL Hct (39.0-53.0) % MCV (80.0-100.0) fL MCH (25.0-35.0) pg RDW (11.5-15.5) % Neutrophils # (Manual) (1.3-7.7) k/uL Lymphocytes # (Manual) (1.0-4.8) k/uL Metamyelocytes # (Man) (0) k/uL Myelocytes # (Manual) (0) k/uL Nucleated RBCs (0-0) /100 WBC PT 12.6 H (9.0-12.0) sec INR 1.2 H (<1.2) APTT 20.1 L (22.0-30.0) sec Carbon Dioxide (22-30) mmol/L BUN (9-20) mg/dL Creatinine (0.66-1.25) mg/dL Glucose (74-99) mg/dL Total Bilirubin (0.2-1.3) mg/dL AST (17-59) U/L ALT (21-72) U/L Troponin I 0.309 H* (0.000-0.034) ng/mL Total Protein (6.3-8.2) g/dL Crossmatch Thrombosis Risk Factor Assmnt - DVT/VTE Prophylaxis DVT/VTE Prophylaxis: Contraindicated - See note (Hospice) - Choose All That Apply Each Risk Factor Represents 3 Points: Age 75 years or older Thrombosis Risk Factor Assessment Total Risk Factor Score: 3 Thrombosis Risk Factor Assessment Level: Moderate Risk Assessment and Plan Plan: 1. Acute blood loss anemia with epistaxis. 2. Non-ST elevated myocardial infarction secondary to anemia. 3. Acute kidney injury, ATN. 4. Bradycardia and hypotension with eminent . 5. Alzheimer's dementia. 6. Chronic systolic heart failure with severe ischemic cardiomyopathy and EF of 20%. 7. Hypertension, hypertensive cardiovascular disease. 8. History of coronary artery disease and myocardial infarction. 9. Chronic kidney disease stage III. CODE STATUS: No code Plan: Patient will be placed on comfort measures and hospice referral placed. Continue IV Ativan, IV morphine. Patient will be admitted to the hospital for a minimum of 2 night stay. Discharge plan: To be determined Impression and plan of care have been directed as dictated by the signing physician. Justine Bui nurse practitioner acting as scribe for signing physician.
[2018-08-23] MEDS: LORazepam 2 MG/ML INJ IV PRN ×2 (06:02→11:00)
--- NOTE | 2018-08-23 09:38 | PN ---
PROGRESS NOTE DATE OF SERVICE: 08/23/2018 He has been unresponsive. He has shallow respirations with Kussmaul-type breathing. On physical examination, his blood pressure is 82/58, respiratory rate of 13, pulse rate of 99, O2 saturation on 2 L by nasal cannula is 100%. HEENT reveals no new changes. Chest with decreased breath sounds. Cardiovascular system is S1, S2. Abdomen is soft. There is no trace edema. IMPRESSION: 1. Acute renal failure. 2. Hypertension. 3. Dementia. Continue comfort oriented care. Plan is for possible hospice in the near future. MMODL / IJN: [id number] /
[2018-08-23 11:05] VITALS: RESP 24
--- NOTE | 2018-08-23 15:48 | P.DS ---
Providers Date of admission: 08/22/18 10:32 Expected date of discharge: 08/23/18 Attending physician: Brody Tsai Consults: 08/22/18 08:19 Consult Physician Routine Consulting Provider: Johnathon Crane Consult Reason/Comments: primary care doctor Do you want consulting provider notified?: Already Contacted Primary care physician: Johnathon Crane Hospital Course: This is an 82-year-old male patient of Dr. INGRID Crane with past medical history of hypertension, hypertensive cardiovascular disease, chronic systolic heart failure with ischemic cardiomyopathy and EF of 20%, [place] with coronary artery disease, chronic kidney disease stage III, remote tobacco use, Alzheimer's dementia. Patient's daughter is at the bedside and gives history that at 9:30 yesterday he started having a bloody nose and then was found to be slumped in the chair and EMS was called to bring him into the hospital. 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 Patient was very pale and lethargic upon arrival to the emergency center. His initial temperature was 92, heart rate in the 30s, blood pressure down to 63/37. EKG was a sinus with a left bundle thaddeus block. IV access was obtained and patient was given 2 units of packed RBCs for hemoglobin of 7.6 with active bleeding. Family made the patient DO NOT RESUSCITATE. Patient's heart rate dropped down to 26 and atropine was given. His heart rate was maintained mostly in the 30s. Family voiced at that time that they wanted to make him comfort care only. Patient did have episodes of V. tach with rates up to 150. Patient had elevated troponin as well as elevated renal function. He has been placed on the MedSurg floor and hospice referral placed. 08/23: Patient's daughter is at bedside. Plan is for patient to go to [facility] home today. Prescriptions have been provided. Patient's daughter is waiting for patient's discharge to come to the hospital and then we will transport to hospice. Discharge diagnoses: 1. Acute blood loss anemia with epistaxis. 2. Non-ST elevated myocardial infarction secondary to anemia. 3. Acute kidney injury, ATN. 4. Bradycardia and hypotension with eminent . 5. Alzheimer's dementia. 6. Chronic systolic heart failure with severe ischemic cardiomyopathy and EF of 20%. 7. Hypertension, hypertensive cardiovascular disease. 8. History of coronary artery disease and myocardial infarction. 9. Chronic kidney disease stage III. Discharge plan: [facility] home Impression and plan of care have been directed as dictated by the signing physician. Jutsine Bui nurse practitioner acting as scribe for signing physician. Patient Condition at Discharge: Poor Plan - Discharge Summary Discharge Rx Participant: No New Discharge Prescriptions: New LORazepam ORAL CONC [Ativan Intensol] 2 mg PO Q4HR PRN #30 ml PRN Reason: Anxiety Atropine Ophth Soln 1% 5Ml [Isopto Atropine 1% 5Ml] 2 drops PO Q4HR PRN #1 bottle PRN Reason: Secretions MORPHINE ORAL DUC CONC 20mg/mL [Roxanol Oral Soln Conc 20MG/ML] 5 mg PO Q4H PRN #30 ml PRN Reason: Pain Discontinued Aspirin [Adult Low Dose Aspirin EC] 81 mg PO DAILY #30 tablet. Atenolol 25 mg PO DAILY #30 tablet Furosemide [Lasix] 40 mg PO DAILY #30 tablet Isosorbide Mononitrate ER [Imdur] 30 mg PO DAILY #30 tab Nitroglycerin Sl Tabs [Nitrostat] 0.4 mg SUBLINGUAL Q5M PRN #100 tab PRN Reason: Chest Pain Discharge Medication List Atropine Ophth Soln 1% 5Ml [Isopto Atropine 1% 5Ml] 2 drops PO Q4HR PRN #1 bottle 08/23/18 [Rx] LORazepam ORAL CONC [Ativan Intensol] 2 mg PO Q4HR PRN #30 ml 08/23/18 [Rx] MORPHINE ORAL DUC CONC 20mg/mL [Roxanol Oral Soln Conc 20MG/ML] 5 mg PO Q4H PRN #30 ml 08/23/18 [Rx] Follow up Appointment(s)/Referral(s): Johnathon Crane MD [Primary Care Provider] - As Needed Discharge Disposition: [facility]
== END 2018-08-23 13:33 | disposition hospice, inpatient (51) | DRG 280 ==
LOC: EC 02:11 → SUPCPDRO 02:11 → 4SSUR 03:45 → OBSVTOIN 10:32
PROVIDERS: ADMIT Internal Medicine Geriatric Medicine; ATTEND Internal Medicine Geriatric Medicine
PROC: 30233N1 Transfusion of Nonautologous Red Blood Cells into Peripheral Vein, Percutaneous Approach (ICD-10-PCS; principal; 2018-08-22)
DX: I21.4 Non-ST elevation (NSTEMI) myocardial infarction (principal); N17.0 Acute kidney failure with tubular necrosis; G93.41 Metabolic encephalopathy; D62 Acute posthemorrhagic anemia; I13.0 Hypertensive heart and chronic kidney disease with heart failure and stage 1 through stage 4 chronic kidney disease, or unspecified chronic kidney disease; I47.2 Ventricular tachycardia; I50.22 Chronic systolic (congestive) heart failure; K92.2 Gastrointestinal hemorrhage, unspecified; Z51.5 Encounter for palliative care; Z66 Do not resuscitate; I25.5 Ischemic cardiomyopathy; I95.9 Hypotension, unspecified; F02.80 Dementia in other diseases classified elsewhere, unspecified severity, without behavioral disturbance, psychotic disturbance, mood disturbance, and anxiety; G30.9 Alzheimer's disease, unspecified; N18.3 Chronic kidney disease, stage 3 (moderate); R00.1 Bradycardia, unspecified; I25.10 Atherosclerotic heart disease of native coronary artery without angina pectoris; I25.2 Old myocardial infarction; R04.0 Epistaxis; R68.0 Hypothermia, not associated with low environmental temperature; Z79.82 Long term (current) use of aspirin; Z79.899 Other long term (current) drug therapy; Z87.891 Personal history of nicotine dependence; Z82.49 Family history of ischemic heart disease and other diseases of the circulatory system; Z82.3 Family history of stroke
CPT/HCPCS: 36415; 80053; 84484; 85025; 85610; 85730; 86850; 86900; 86901; 86920; 93005; 96361; 96365; 96366; 96374; 96375; 99285